=== PATIENT | female | born 1995 | race Caucasian/White ===

== ENCOUNTER 2022-09-01 14:32 | Emergency (ER) | payer OTHER ==
[~2022-09-01] VITALS: Ht 167.6 cm; Wt 119.7 kg
[2022-09-01] MEDS ORDERED: ZESTRIL10 MG PO (16:43)
[2022-09-01] MEDS ORDERED: ESTRADIOL10 MCG PO (16:43)
[2022-09-01] MEDS ORDERED: METHADONE HCL10 MG PO (16:44)
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
== END 2022-09-01 19:13 | disposition home or self-care (01) ==
LOC: ED 14:32
DX: S13.9XXA Sprain of joints and ligaments of unspecified parts of neck, initial encounter (principal); M54.9 Dorsalgia, unspecified; V89.2XXA Person injured in unspecified motor-vehicle accident, traffic, initial encounter; I10 Essential (primary) hypertension; Z79.899 Other long term (current) drug therapy
CPT/HCPCS: 99283

== ENCOUNTER 2024-12-01 18:09 | Emergency (ER) | payer OTHER ==
[~2024-12-01] VITALS: Ht 167.6 cm; Wt 125.9 kg
[~2024-12-01 18:09] MED LIST: ESTRADIOL10 MCG PO; METHADONE HCL10 MG PO; ONDANSETRON ODT8 MG PO; ZESTRIL10 MG PO
[2024-12-01 19:04] LABS: ALT (SGPT) 39 U/L (14-59); AST (SGOT) 17 U/L (15-37); GLOMERULAR FILTRATION RATE,EST 72 mL/min (>60); PROTEIN, TOTAL 8.0 g/dL (6.4-8.2); UREA NITROGEN 14 mg/dL (7-18)
[2024-12-01 19:28] LABS: BASOPHILS 0.5 % (0.1-1.2); EOSINOPHILS 2.2 % (0.7-5.8); LYMPHOCYTES 38.0 % (19.3-51.7); MCH 30.2 PG (25.6-32.2); MCHC 33.7 g/dL (32.2-35.5); MCV 89.6 fL (79.4-94.8); MONOCYTES 5.9 % (4.7-12.5); NEUTROPHILS 53.3 % (34.0-71.1); RBC 4.41 M/uL (3.93-5.22)
[2024-12-01 20:21] VITALS: BP 126/71
--- NOTE | 2024-12-02 22:05 | EKG ---
[facility] [address] [place] [address] Signed Normal sinus rhythm Low voltage QRS Borderline ECG No previous ECGs available Confirmed by Eliz Agee MD () on 12/02/2024 10:05:22 PM Electronically Signed By: ELIZ AGEE MD 12/02/242204 PATIENT NAME: AMISH GIORDANO Electrocardiogram DATE OF : [birth year] PHYSICIAN: ELIZ AGEE MD REPORT #: [id number] REPORT IS CONFIDENTIAL AND NOT TO BE RELEASED WITHOUT AUTHORIZATION
== END 2024-12-01 20:22 | disposition home or self-care (01) ==
LOC: ED 18:09
PROVIDERS: Emergency Medicine
DX: R07.9 Chest pain, unspecified (principal); H81.10 Benign paroxysmal vertigo, unspecified ear; I10 Essential (primary) hypertension
CPT/HCPCS: 36415; 71045; 80053; 83735; 84484; 84703; 85025; 93005; 93010; 99285-25